=== PATIENT | female | born 1950 | race Caucasian/White ===

== ENCOUNTER 2019-12-28 11:22 | Outpatient (CLI) | payer MEDICARE, OTHER ==
[2019-12-28] MEDS ORDERED: FENTANYL PF 100 MCG/2ML ONE (13:10)
[2019-12-28] MEDS ORDERED: MIDAZOLAM 1 MG/ML, 5ML ONE (13:10)
[2019-12-28] MEDS ORDERED: FLUMAZENIL 0.1 MG/1 ML, 5ML ONE (13:11)
[2019-12-28] MEDS ORDERED: NALOXONE 1 MG/ML, 2ML ONE (13:11)
== END 2019-12-28 23:59 | disposition home or self-care (01) ==
LOC: RAD 11:22
PROVIDERS: ATTEND Physician Assistant Surgical
DX: M53.3 Sacrococcygeal disorders, not elsewhere classified (principal); M48.061 Spinal stenosis, lumbar region without neurogenic claudication; M47.816 Spondylosis without myelopathy or radiculopathy, lumbar region; G89.4 Chronic pain syndrome; M96.1 Postlaminectomy syndrome, not elsewhere classified; I10 Essential (primary) hypertension; E78.5 Hyperlipidemia, unspecified; K21.9 Gastro-esophageal reflux disease without esophagitis; J45.909 Unspecified asthma, uncomplicated; M06.9 Rheumatoid arthritis, unspecified; E11.40 Type 2 diabetes mellitus with diabetic neuropathy, unspecified; Z79.84 Long term (current) use of oral hypoglycemic drugs; Z79.891 Long term (current) use of opiate analgesic; Z79.1 Long term (current) use of non-steroidal anti-inflammatories (NSAID); Z79.899 Other long term (current) drug therapy; Z98.1 Arthrodesis status; Z98.890 Other specified postprocedural states
CPT/HCPCS: 72148; 99156; 99157; J2250; J3010; J2310

== ENCOUNTER 2020-05-23 08:52 | Outpatient (CLI) | payer MEDICARE, OTHER ==
[2020-05-23] MEDS ORDERED: FENTANYL PF 100 MCG/2ML ONE (10:00)
[2020-05-23] MEDS ORDERED: NALOXONE 1 MG/ML, 2ML ONE (10:01)
[2020-05-23] MEDS ORDERED: FLUMAZENIL 0.1 MG/1 ML, 5ML ONE (10:01)
[2020-05-23] MEDS ORDERED: MIDAZOLAM 1 MG/ML, 5ML ONE (10:01)
== END 2020-05-23 23:59 | disposition home or self-care (01) ==
LOC: RAD 08:52
PROVIDERS: ATTEND Physical Medicine & Rehabilitation
DX: M25.552 Pain in left hip (principal); S76.312A Strain of muscle, fascia and tendon of the posterior muscle group at thigh level, left thigh, initial encounter; M70.62 Trochanteric bursitis, left hip; G89.4 Chronic pain syndrome; E11.42 Type 2 diabetes mellitus with diabetic polyneuropathy; I10 Essential (primary) hypertension; E78.5 Hyperlipidemia, unspecified; M06.9 Rheumatoid arthritis, unspecified; K21.9 Gastro-esophageal reflux disease without esophagitis; J45.909 Unspecified asthma, uncomplicated; Z79.84 Long term (current) use of oral hypoglycemic drugs; Z79.82 Long term (current) use of aspirin; Z79.891 Long term (current) use of opiate analgesic; Z79.899 Other long term (current) drug therapy; Z90.710 Acquired absence of both cervix and uterus; Z98.1 Arthrodesis status; Z98.890 Other specified postprocedural states; Z80.3 Family history of malignant neoplasm of breast; X58.XXXA Exposure to other specified factors, initial encounter; Y93.89 Activity, other specified; Y92.89 Other specified places as the place of occurrence of the external cause; Y99.8 Other external cause status
CPT/HCPCS: 73721; 99156; 99157; J2250; J3010; J2310

== ENCOUNTER 2020-08-16 12:04 | Outpatient (CLI) | payer MEDICARE, OTHER ==
[2020-08-16] MEDS ORDERED: FENTANYL PF 100 MCG/2ML ONE (13:02)
[2020-08-16] MEDS ORDERED: MIDAZOLAM 1 MG/ML, 5ML ONE (13:02)
[2020-08-16] MEDS ORDERED: GADOTERATE 7.5 MMOL/15 ML SYR ONE (14:00)
== END 2020-08-16 23:59 | disposition home or self-care (01) ==
LOC: RAD 12:04
PROVIDERS: ATTEND Neurological Surgery
DX: M48.061 Spinal stenosis, lumbar region without neurogenic claudication (principal); M54.16 Radiculopathy, lumbar region
CPT/HCPCS: 72110; 72158; 99156; 99157; A9575; J2250; J3010